=== PATIENT | female | born 1985 | race African-American/Black ===

== ENCOUNTER 2017-10-13 00:16 | Emergency (ER) | payer MEDICAID, MEDICARE, SELFPAY ==
[2017-10-13] MEDS ORDERED: Azithromycin 250 MG TAB ONE (00:37)
[2017-10-13] MEDS ORDERED: cefTRIAXone\\ROCEPHIN 250 MG VIAL ONE (00:37)
[2017-10-13] MEDS ORDERED: Lidocaine 1% PF 5 ML VIAL ONE (00:37)
== END 2017-10-13 01:00 | disposition home or self-care (01) ==
LOC: SCSER 00:16
DX: Z20.2 Contact with and (suspected) exposure to infections with a predominantly sexual mode of transmission (principal); J45.909 Unspecified asthma, uncomplicated; F17.210 Nicotine dependence, cigarettes, uncomplicated; F31.9 Bipolar disorder, unspecified; F41.9 Anxiety disorder, unspecified
CPT/HCPCS: 87491; 87591; 96372; J0696; J2001

== ENCOUNTER 2018-05-17 17:47 | Emergency (ER) | payer MEDICARE, SELFPAY ==
[2018-05-17 18:16] LABS: Bilirubin Negative (Negative); Blood, Urine Trace (Negative); Clarity Slightly Cloudy (Clear); Glucose, Urine (Dipstick) Negative (Negative); Leukocyte Negative (Negative); Nitrite Negative (Negative); Protein, Urine (Dipstick) 30 mg/dL (Neg-Trace); Urobilinogen 0.2 mg/dL (0.2-1.0)
[2018-05-17 18:17] LABS: Pregnancy Test - Urine (BHCG) POSITIVE (Negative); Pregu Control Background? CLEAR/WHITE (CLR/WHITE); Pregu Control Bar Appear? YES (CONTROL BAR); Specific Gravity 1.028 (1.002-1.036); Specific Gravity, Urine 1.028 (1.002-1.036)
[2018-05-17 18:26] LABS: RBC/HPF 0-3 HPF (0-3)
[2018-05-17 18:27] LABS: Bacteria/HPF None Seen HPF (None Seen); Hyaline Casts/LPF 0-3 HYALINE CAST LPF (0-3 Hyaline)
[2018-05-17] MEDS ORDERED: Acetaminophen 500 MG TAB ONE (19:44)
--- NOTE | 2018-05-17 22:31 | ULT ---
TRANSVAGINAL PELVIC ULTRASOUND WITH DOPPLER (GRAYSCALE, COLOR FLOW, AND SPECTRAL DOPPLER IMAGING): History: Abdominal cramping. FINDINGS: A single live intrauterine gestation is seen with measurements corresponding to an estimated gestatio nal age of 9 weeks 2 days with REYNA of 12-18-18. The crown rump length measures 2.5 cm. heart rat e measures 169 beats/minute. The uterus is retroverted. Both ovaries are normal and demonstrate flow. No free fluid is seen in the cul-de-sac. No adnexal masses are identified. IMPRESSION: Single live IUP of 9 weeks 2 days estimated gestational age with REYNA of 12-18-18. POS: [facility]
[2018-05-19 20:16] LABS: Chlamydia by PCR Not Detected (NotDetected); GC by PCR Not Detected (NotDetected)
== END 2018-05-17 21:30 | disposition home or self-care (01) ==
LOC: SCSER 17:47
DX: O99.89 Other specified diseases and conditions complicating pregnancy, childbirth and the puerperium (principal); R10.2 Pelvic and perineal pain; O99.511 Diseases of the respiratory system complicating pregnancy, first trimester; J45.909 Unspecified asthma, uncomplicated; O99.341 Other mental disorders complicating pregnancy, first trimester; F41.9 Anxiety disorder, unspecified; F31.9 Bipolar disorder, unspecified; O99.331 Smoking (tobacco) complicating pregnancy, first trimester; Z3A.09 9 weeks gestation of pregnancy
CPT/HCPCS: 36415; 76856; 81003; 81015; 81025; 84702; 87480; 87491; 87510; 87591; 87660

== ENCOUNTER 2018-06-07 15:59 | Emergency (ER) | payer MEDICARE ==
[2018-06-07 16:39] LABS: Bilirubin Small (Negative); Blood, Urine Negative (Negative); Clarity CLEAR (Clear); Glucose, Urine (Dipstick) Negative (Negative); Leukocyte Negative (Negative); Nitrite Negative (Negative); Protein, Urine (Dipstick) Trace mg/dL (Neg-Trace); Specific Gravity, Urine 1.034 (1.002-1.036)
[2018-06-08 22:42] LABS: Chlamydia by PCR Not Detected (NotDetected); GC by PCR Not Detected (NotDetected)
== END 2018-06-07 18:45 | disposition home or self-care (01) ==
LOC: ERS 15:59
DX: O99.89 Other specified diseases and conditions complicating pregnancy, childbirth and the puerperium (principal); R10.2 Pelvic and perineal pain; O99.011 Anemia complicating pregnancy, first trimester; O99.511 Diseases of the respiratory system complicating pregnancy, first trimester; J45.909 Unspecified asthma, uncomplicated; O99.341 Other mental disorders complicating pregnancy, first trimester; F31.9 Bipolar disorder, unspecified; F41.9 Anxiety disorder, unspecified; O99.331 Smoking (tobacco) complicating pregnancy, first trimester; F17.210 Nicotine dependence, cigarettes, uncomplicated; Z3A.12 12 weeks gestation of pregnancy
CPT/HCPCS: 81003; 87480; 87491; 87510; 87591; 87660; 99283

== ENCOUNTER 2018-06-19 07:35 | Outpatient (CLI) | payer MEDICAID | END 2018-06-19 07:36 | disposition home or self-care (01) | LOC: BICULT 07:35 | PROVIDERS: ATTEND Nurse Practitioner | DX: O09.92 Supervision of high risk pregnancy, unspecified, second trimester (principal); N88.3 Incompetence of cervix uteri | CPT/HCPCS: 76805 ==

== ENCOUNTER 2018-08-12 16:25 | Day surgery (SDC) | payer MEDICARE, MEDICAID ==
[2018-08-12 17:13] VITALS: BMI 28.2
[2018-08-12 17:16] VITALS: BP 110/57; TEMP 98.9
[2018-08-12 17:17] LABS: Amnisure Internal Control QC ACCEPTABLE (ACCEPTABLE); Amnisure Test No Membranes Rupture (No Rupture)
[2018-08-12 18:33] LABS: Bilirubin Negative (Negative); Blood, Urine Negative (Negative); Clarity CLEAR (Clear); Glucose, Urine (Dipstick) Negative (Negative); Leukocyte Negative (Negative); Nitrite Negative (Negative); Protein, Urine (Dipstick) Negative (Neg-Trace); Specific Gravity, Urine 1.026 (1.002-1.036)
[2018-08-12 18:39] LABS: Bacteria/HPF None Seen HPF (None Seen); Hyaline Casts/LPF 0-3 HYALINE CAST LPF (0-3 Hyaline); Pathc Cast-AUWi Flag 0.87 (0-2.49); RBC/HPF 0-3 HPF (0-3); Squamous Epithelial 0-3 HPF (0-3); WBC/HPF 0-3 HPF (0-3)
--- NOTE | 2018-08-12 21:50 | PRG ---
DATE OF SERVICE: 08/12/2018 PRIMARY COMMUNITY OUTREACH COORDINATOR: Mattie Jasso MD CHIEF COMPLAINT: Leakage of fluid. HISTORY OF PRESENT ILLNESS: The patient is a 33-year-old female with an intrauterine at 22 weeks and a day, presenting for 3-day history of leakage of fluid. The patient reports that t he liquid is more watery than mucousy. She denies any uterine contractions. She does report she has lower back pain on the right side, but that has been present for several weeks and is aggravated wit h movement and activity. The patient does have a history of cervical cerclage with this at 18 weeks placed prophylactically for history of incompetent cervix. The patient denies fever, heada alverto, chest pain. She reports shortness of breath with exertional activity. She denies nausea, vomit ing. Denies any new rashes. Denies hip problems or knee problems. Denies vaginal bleeding. Report s some urinary urgency. PAST MEDICAL HISTORY: Asthma, bipolar disorder, generalized anxiety, depression. PAST SURGICAL HISTORY: She has had jaw surgery, tonsillectomy, foot cyst removal, previous cervical cerclage and a prior . SOCIAL HISTORY: Reports 5-6 cigarettes a day and marijuana use in the past. Denies any alcohol use. ALLERGIES: GADOLINIUM. MEDICATIONS: Seroquel 200 mg, vitamins. OB LABS: Unavailable. REVIEW OF SYSTEMS: Per HPI. Patient denies any recent intercourse. PHYSICAL EXAMINATION: VITAL SIGNS: Blood pressure is 110/57, heart rate is 70, respiratory rate of 18, satting 99% on room air, temperature 98.9. GENERAL: She appears to be in no acute distress. She is alert and oriented, cooperative and pleasan t to interact with. HEENT: Normocephalic, atraumatic. LUNGS: Clear to auscultation bilaterally. HEART: Regular rate and rhythm. ABDOMEN: Soft, gravid and nontender. She has some tenderness to palpation along the right SI joint and out toward the iliac wing along the gluteus medius muscle. Her perineum appears to be dry. On s peculum exam, there is no pulling visible though she does have discharge present. Cervix is very pos terior and difficult to clearly place into view without undue discomfort. Urinalysis shows a negativ e protein, shows ketones greater than 80, negative for blood, negative for nitrites, negative for mckenna kocyte esterase. No white blood cells, no bacteria. AmniSure test was negative for rupture of membr anes and her NET TECHNICAL ARCHITECT-3 test is positive for Gardnerella. Bedside ultrasound demonstrates normal appearing amniotic fluid with a cervical length of 3.4 cm. PELVIC: On digital exam, the cervix was thick and long. No defects palpable and a cerclage clearly about 2+ cm from the most distal portion of the cervix. ASSESSMENT AND PLAN: The patient is a 33-year-old female with an intrauterine at 22 weeks, presenting with leakage of fluid. There is no evidence of rupture of membranes, labor . Cervix, the cerclage is intact. The patient has been diagnosed with bacterial vaginosis and will be prescribed a prescription of metronidazole 500 mg to be taken twice a day for the next 7 days. Uriel morris has been discharged to home with precautions and has been asked to keep her followup appointment wi mj Jasso as scheduled.
== END 2018-08-12 19:29 | disposition home or self-care (01) ==
LOC: L&D/OP 16:25
PROVIDERS: ATTEND Student in an Organized Health Care Education/Training Program
DX: O99.89 Other specified diseases and conditions complicating pregnancy, childbirth and the puerperium (principal); N89.8 Other specified noninflammatory disorders of vagina; O99.332 Smoking (tobacco) complicating pregnancy, second trimester; F17.210 Nicotine dependence, cigarettes, uncomplicated; O34.32 Maternal care for cervical incompetence, second trimester; O23.592 Infection of other part of genital tract in pregnancy, second trimester; B96.89 Other specified bacterial agents as the cause of diseases classified elsewhere; O99.512 Diseases of the respiratory system complicating pregnancy, second trimester; J45.909 Unspecified asthma, uncomplicated; O99.342 Other mental disorders complicating pregnancy, second trimester; F31.9 Bipolar disorder, unspecified; F41.1 Generalized anxiety disorder; Z3A.22 22 weeks gestation of pregnancy; Z79.899 Other long term (current) drug therapy; Z91.041 Radiographic dye allergy status
CPT/HCPCS: 76815; 81001; 84112; 87480; 87510; 87660; 99284

== ENCOUNTER 2018-10-02 17:25 | Day surgery (SDC) | payer MEDICARE, MEDICAID ==
[2018-10-02 19:35] VITALS: BP 99/54; TEMP 98.3; BMI 28.8
[2018-10-02] MEDS ORDERED: Lactated Ringer's 1,000 ML IV SCH ×2 (19:45)
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
[2018-10-02] MEDS ORDERED: Acetaminophen 500 MG TAB PO PRN (19:59)
[2018-10-02] MEDS ORDERED: Acetaminophen 500 MG TAB PO SCH (20:15)
[2018-10-02] MEDS ORDERED: Cyclobenzaprine 10 MG TAB PO SCH (22:00)
--- NOTE | 2018-10-02 22:23 | PDOC.EVN ---
Event Note - Event Note Event Note: 10/02/2018 at 9:30 PM Cervical length screen 3.29 cm. Patient does not appear to be in labor at this time. labor precautions provided. Mechanism of injury was such that patient did not sustain serious injuries. No bruising or swelling evident on body. Patient only complaining of left arm pain. Due to mechanism of injury as described in HPI, patient does not necessitate 24 hour monitoring. Advised patient to come back if she started to have vaginal bleeding, painful and regular contractions, or LoF. Patient understood. Will send patient home with muscle relaxer and tylenol #3 (x10 pills). 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 Sussy Coronado, PGY-2 <Sussy Coronado - Last Filed: 10/02/18 22:17> Attending Addendum - Attending Addendum Date/Time: 10/04/18 [id number] I personally evaluated the patient and discussed the management with Dr. Coronado I agree with the History, Examination, Assessment and Plan documented above with any addition or exceptions noted below. <Luis Blanco - Last Filed: 10/04/18 17:59>
--- NOTE | 2018-10-02 22:24 | ULT ---
LIMITED PELVIC ULTRASOUND: 10/02/18 HISTORY: 33-year-old female who is to evaluate for cervical length. Transabdominal and translabial ultrasound examination is performed. Cervical length approximates betw een 2.1 and 3.3 cm measuring approximately 2.1 cm with contractions. The fetus is in cephalic present ation. Small echogenicities are noted consistent with known cerclage. IMPRESSION: Cervical length varying between 2.1 and 3.3 cm, 2.1 cm with contraction. POS: [facility]
== END 2018-10-02 22:12 | disposition home or self-care (01) ==
LOC: SCSER 17:25 → L&D/OP 18:37
PROVIDERS: ATTEND Obstetrics & Gynecology
DX: O99.89 Other specified diseases and conditions complicating pregnancy, childbirth and the puerperium (principal); M25.512 Pain in left shoulder; R10.2 Pelvic and perineal pain; O34.33 Maternal care for cervical incompetence, third trimester; O09.213 Supervision of pregnancy with history of pre-term labor, third trimester; O99.343 Other mental disorders complicating pregnancy, third trimester; F31.9 Bipolar disorder, unspecified; F41.9 Anxiety disorder, unspecified; Z3A.29 29 weeks gestation of pregnancy; Z79.899 Other long term (current) drug therapy; Z91.041 Radiographic dye allergy status; Z91.048 Other nonmedicinal substance allergy status; V03.90XA Pedestrian on foot injured in collision with car, pick-up truck or van, unspecified whether traffic or nontraffic accident, initial encounter
CPT/HCPCS: 59025; 76857; 96360; 96361; 99285

== ENCOUNTER 2018-10-17 22:55 | Inpatient (IN) | payer MEDICARE, MEDICAID ==
[2018-10-17 23:36] VITALS: BP 102/59; TEMP 98.6; BMI 29.0
[2018-10-17] MEDS ORDERED: Meperidine HCl/PF 25 MG/ML VIAL IM/IV PRN (23:41)
[2018-10-17] MEDS ORDERED: Ondansetron PF 4 MG/2 ML Vial IVP PRN (23:41)
[2018-10-17] MEDS: Lactated Ringer's 1,000 ML IV SCH (23:48)
[2018-10-17] MEDS ORDERED: Betamet Acet/Betamet Na Ph 30 MG/5 ML VIAL ONE (23:52)
[2018-10-17] MEDS ORDERED: Magnesium Sulfate 20 gm/500 ml 20 GM/500 ML BAG ONE (23:53)
[2018-10-17] MEDS: Magnesium Sulfate 20 gm/500 ml 20 GM/500 ML BAG IVPB SCH (23:58)
[2018-10-17] MEDS ORDERED: Magnesium Sulfate 20 GM/WATER 500 ML BAG IVPB SCH (23:59)
[2018-10-18] MEDS ORDERED: Penicillin G Potassium 5 MILL.UNITS VIAL ONE (00:05)
[2018-10-18 00:16] LABS: Hemoglobin 11.1 g/dL (12.0-16.0); Mean Corpuscular HGB CONC 36.1 g/dL (32.0-36.0); Mean Corpuscular Hemoglobin 35.3 pg (27.0-31.0); Mean Corpuscular Volume 97.6 fL (78.0-98.0); Platelet Count 312 thou/uL (130-400); RBC Distribution Width 11.4 % (11.5-14.5); Red Blood Cell (RBC) Count 3.14 mill/uL (4.20-5.40); White Blood Cell (WBC) Count 10.1 thou/uL (4.8-10.8)
--- NOTE | 2018-10-18 00:17 | PDOC.LDHP ---
Labor and Delivery H&P Chief complaint: contractions HPI: 33 yo WF presents c/o UCs since earlier this PM. Denies SROM or bleeding. Current gestational age (weeks): 31 Due date: 12/15/18 Dating criteria: first trimester ultrasound Grav: 8 Para: 2 OB History Details: PNC with Dr. Jasso. Cerclage placed at 14 weeks. On IM progesterone, has not taken in 3 weeks. H/o of prev. C/S at 35 weeks for FTP, dispo for . Current complications: other (as above) Abnormal US findings: No Past Medical History: asthma, bipolar Current medications: pre- vitamins, other (Prozac) Previous surgical history: low tranverse CS, dilation and curettage Allergies/Adverse Reactions: Allergies Allergy/AdvReac Type Severity Reaction Status Date / Time grass pollen-perennial rye, Allergy Verified 10/02/18 19:23 standar [grass poll-perennial rye,std] Gadolinium-Containing AdvReac Intermediate Anaphylaxis Verified 10/02/18 19:23 Contrast Medi Social history: tobacco use, drug use (MJ last used 2 weeks ago) - Physical Exam Vital signs reviewed and normal: yes General: breathing through contractions Heart: RRR Lungs: CTAB Abdomen: gravid FHT: category 1 [place] contractions every: UCs q 3 mins. - Vaginal Exam cm dilated: 0 Effacement: 75% - OB Labs Blood type: unknown RH: unknown Antibody Screen: unknown GBS: unknown - Assessment L&D Assessment: labor (31 weeks with cerclage in place) - Plan Plan: admit to L&D, GBS antibiotic prophylaxis, magnesium for neuroprotection, informed consent obtained (D/w Dr. Jasso, Hospitalists to manage), other ( Steroids for FLM USG for cervical length, EFW)
[2018-10-18 00:35] LABS: Bilirubin Negative (Negative); Blood, Urine Trace (Negative); Clarity CLEAR (Clear); Glucose, Urine (Dipstick) Negative (Negative); Leukocyte Negative (Negative); Nitrite Negative (Negative); Protein, Urine (Dipstick) Negative (Neg-Trace); Specific Gravity, Urine 1.014 (1.002-1.036); Urobilinogen 0.2 mg/dL (0.2-1.0); pH, Urine 6.5 (5.0-9.0)
[2018-10-18 00:38] LABS: Bacteria/HPF None Seen HPF (None Seen); Hyaline Casts/LPF 0-3 HYALINE CAST LPF (0-3 Hyaline); Pathc Cast-AUWi Flag 0.58 (0-2.49); Squamous Epithelial 0-3 HPF (0-3); WBC/HPF 0-3 HPF (0-3)
[2018-10-18] MEDS ORDERED: Indomethacin 50 MG SUPP PR SCH (00:45)
[2018-10-18] MEDS: Butorphanol Tartrate 1 MG/ML VIAL SLOW IVP PRN ×3 (00:48→05:44)
[2018-10-18 00:59] LABS: Amphetamine Not Detected (NotDetected); Barbiturates Screen Not Detected (NotDetected); Benzodiazepine Screen Not Detected (NotDetected); Cocaine Metabolite Screen Not Detected (NotDetected); Medtox Control Line Valid? VALID (VALID); Medtox Reader # READER 1; Methadone Not Detected (NotDetected); Methamphetamine Not Detected (NotDetected); Opiate Screen Not Detected (NotDetected); Oxycodone Screen Not Detected (NotDetected); Phencyclidine (PCP) Not Detected (NotDetected); THC/Cannabinoid Screen Detected (NotDetected); Tricyclic Screen Not Detected (NotDetected)
--- NOTE | 2018-10-18 02:42 | PDOC.EVN ---
Event Note - Event Note Event Note: Mg load given now at 2 gms/hr. Indocin 50 mg NM also given. 1st dose of steroids given. USG; vtx, cervix= 1.6 cm long, EFW= 3 lbs, 12 oz. UDS returns with MJ that she admitted to. Plan; Cont. MgSo4 and attempt 2nd dose of steroids. Cont. Pen G for GBS ppx.
[2018-10-18] MEDS: Pen G 2.5 MILL.UNITS/50 ML BAG IVPB SCH ×6 (04:08→20:39)
[2018-10-18] MEDS: Magnesium Sulfate 20 gm/500 ml 20 GM/500 ML BAG IVPB SCH ×2 (07:03→16:13)
[2018-10-18] MEDS: Lactated Ringer's 1,000 ML IV SCH ×2 (07:33→18:08)
--- NOTE | 2018-10-18 08:48 | PDOC.EVN ---
Event Note - Event Note Event Note: [facility] OBG[facility] Patient seen at bedside. Handwritten progress note in chart Plan reviewed in details reviewed, written on white marker board in room. Assessment and EGA: 31 weeks 5 days, prior CS, cerclage in use, prior CS cleared for TOLAC. Plan: ABX Mag for neuroprotection Celestione #2 at midnight 10/19 cerclage out if labors NICU aware Sono done: vertex, EFW 1663 grams; cervical length 1.5cm by Nicki report to me
[2018-10-18] MEDS: Promethazine HCl 25 MG/ML VIAL IM PRN ×2 (09:29→19:03)
--- NOTE | 2018-10-18 15:56 | ULT ---
PRELIMINARY REPORT/[facility]/EMERGENTY AFTER-HOURS PROCEDURE US After First Trimester, Transabdominal EXAM DATE/TIME: 10/18/2018 12:58 AM CLINICAL HISTORY: 33 years old, female; Pain; labor - eval cervix, position, EFW; gestational age: 31 wks; Prior surgery; date: 6+ months; TECHNIQUE: Real-time transabdominal obstetrical ultrasound of the maternal pelvis and a second or third trimeste r with image documentation. COMPARISON: No relevant prior studies available. FINDINGS: BPD: 8.16 cm. HC: 30.12 cm. AC: 26.63 cm. FL: 5.82 cm. Gestational age: 31 weeks, 6 days. Estimated weight: 1692 +/- 250 g. Placental position: Posterior. No placenta previa. JADE: 10.5 cm which is within the normal range. presentation: Vertex. EDC: 12/14/2018. heart rate: 122 bpm. Cervical funneling is present. Cervical length 1.6-1.7 cm. History of cerclage bladder, 4 chamber heart, stomach, and kidneys are identified. movement is identified. IMPRESSION: 1. Single live intrauterine with gestational age of 31 weeks, 6 days. 2. heart rate equals 122 bpm. 3. Normal amniotic fluid volume. 4. No placenta previa. 5. Cervical funneling is present. Cervical length 1.6-1.7 cm. History of cerclage Thank you for allowing us to participate in the care of your patient. Dictated and Authenticated by: Henry Mazariegos MD 10/18/2018 1:59 AM Central Time ([place] & [place]) FINAL REPORT ULTRASOUND OB LIMITED: HISTORY: labor. COMPARISON: Ultrasound pelvic limited 10/02/2018. FINDINGS: Real-time, flores scale, color Doppler, and spectral analysis of the gravid uterus was performed. Surg ical evaluation done with a transvaginal approach. Findings and impression are concordant with the p reliminary report. Cervical length is decreased from the comparison examination. POS: [facility]
--- NOTE | 2018-10-18 17:14 | PDOC.EVN ---
Event Note - Event Note Event Note: Patient stable. Dr Jasso has called and been briefed on status. Dr Jasso managing as well. I ordered regular diet.
[2018-10-18] MEDS: Acetaminophen 500 MG TAB PO PRN (19:03)
[2018-10-18] MEDS: Betamet Acet/Betamet Na Ph 30 MG/5 ML VIAL IM SCH ×2 (23:51)
[2018-10-19] MEDS ORDERED: [UNRECOGNIZED DRUG - OTHER] IM SCH (09:00)
--- NOTE | 2018-10-19 09:00 | PDOC.LDPN ---
Labor & Delivery Progress Note - Subjective Subjective: painful contractions (about 1/hr, no VB LOF. Good FM. ) - Objective Vital signs reviewed and normal: yes General: NAD, resting Uterine fundus: non tender FHT: category 1 [place] contractions every: about 1-2/hr - Assessment (1) contractions Code(s): O47.9 - FALSE LABOR, UNSPECIFIED Current Visit: Yes Status: Acute (2) Cervical cerclage suture present in third trimester Code(s): O34.33 - MATERNAL CARE FOR CERVICAL INCOMPETENCE, THIRD TRIMESTER Current Visit: No Status: Acute -: 33yo at 31w6d by LMP with hx of cervical insufficiency, current cerclage in place presenting with painful contractions, found to be closed on exam initially. 1. PTCx- s/p Mag for tocolysis which decreased the ctx significantly however the contractions she is having are painful. Will start procardia q4h for painful contractions for next 24hr. Cont APU care, ok for minimal ambulation, pt is not to leave the unit. HLIV, cont po hydration. Ok to shower. Pt is high stress with her job and her emotional state, advised pt needing to stay in calm environment with minimal emotional and physical stress. Pt understands. 2. Cerclage in place- no e/o dilation at this time. Plan SVE later today to ensure no changes. 3. Prior CS- desires repeat with cerclage removal. 4. Bipolar- restart prozac, mood good 5. Noncompliance- pt has not been to my clinic in last 6w and has not received 17P since then , will require SWK consult PP 6. THC use- continues use despite being advised on ill effects during , SWK consult 7. H/o PTD- 17P today 8. FHT Cat 1, cont q shift NST. 9. 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 Vertex, EFW 1691gm = 31w6d, nl JADE on sono 10. GBS unknown- cx pending, s/p PCN 11. IUP- has not had GDM testing, will defer since rec'd steroids, restart PNV. 12. Cont APU care. If stable will plan transfer to floor tomorrow and poss DC on Friday.
[2018-10-19] MEDS: FLUoxetine HCl 20 MG CAP PO SCH (09:59)
[2018-10-19] MEDS: Prenatal Vitamin 1 TAB PO SCH (10:00)
[2018-10-19] MEDS: NIFEdipine 10 MG CAP PO SCH ×4 (10:02→22:00)
[2018-10-19] MEDS: Acetaminophen 500 MG TAB PO PRN ×2 (11:58→20:43)
[2018-10-19] MEDS ORDERED: Famotidine 20 MG TAB PO PRN (20:58)
[2018-10-19] MEDS ORDERED: Zolpidem Tartrate 5 MG TAB PO PRN (20:59)
[2018-10-19] MEDS ORDERED: Lactated Ringer's 1,000 ML IV SCH ×2 (23:00→23:59)
[2018-10-20] MEDS: Butorphanol Tartrate 1 MG/ML VIAL SLOW IVP PRN (00:50)
[2018-10-20] MEDS: Acetaminophen 500 MG TAB PO PRN (06:12)
--- NOTE | 2018-10-20 08:01 | PDOC.LDPN ---
Labor & Delivery Progress Note - Objective Vital signs reviewed and normal: yes General: NAD Uterine fundus: non tender - Assessment (1) contractions Code(s): O47.9 - FALSE LABOR, UNSPECIFIED Current Visit: Yes Status: Acute (2) Cervical cerclage suture present in third trimester Code(s): O34.33 - MATERNAL CARE FOR CERVICAL INCOMPETENCE, THIRD TRIMESTER Current Visit: No Status: Acute
[2018-10-20] MEDS ORDERED: Cyclobenzaprine 10 MG TAB PO PRN (08:17)
[2018-10-20] MEDS ORDERED: NIFEdipine 10 MG CAP PO PRN (08:17)
[2018-10-20] MEDS: Docusate 100 MG CAP PO SCH ×2 (09:48→09:50)
[2018-10-20] MEDS: FLUoxetine HCl 20 MG CAP PO SCH (09:48)
[2018-10-20] MEDS: Prenatal Vitamin 1 TAB PO SCH (09:57)
== END 2018-10-20 17:00 | disposition home health service (06) | DRG 833 ==
LOC: L&D/OP 22:55 → L&D 10-18 00:33
PROVIDERS: ADMIT Student in an Organized Health Care Education/Training Program; ATTEND Student in an Organized Health Care Education/Training Program
DX: O47.03 False labor before 37 completed weeks of gestation, third trimester (principal); Z3A.31 31 weeks gestation of pregnancy
CPT/HCPCS: 36415; 51702; 76815; 80306; 81001; 85027; 86850; 86900; 86901; 87081; 87480; 87510; 87660; 99285; J0595; J0702; J1726; J2540; J2550; J3475

== ENCOUNTER 2018-10-26 11:45 | Inpatient (IN) | payer MEDICAID ==
[2018-10-26 12:12] VITALS: BMI 29.1
--- NOTE | 2018-10-26 13:11 | PDOC.LDHP ---
Labor and Delivery H&P HPI: 33yo at 32w2d by LMP that presented to office c/o painful contractions q 5min, increase in yellow-brown discharge and vaginal ripping pain. Pt has hx of cervical insufficiency and currently has cerclage in place. Pt is prior CS x 1 and desires repeat. In office pt found to have cervix dilated to 2cm and cerclage was on tension, 80% effaced. Current gestational age (weeks): 32 Due date: 12/19/17 Dating criteria: last menstrual period Grav: 10 Para: 2 OB History Details: Recurrent loss, multiple SAB at < 10w, SAB x 1 at 13w s/p D&C SPTB at 28w, s/p rescue cerclage at 16w for short cervix SPTB at 37w s/p PCS for FTP Current complications: other (h/o cervical insufficiency and PTL, s/p prophylactic cerclage at 14w this , on 17P weekly.) Abnormal US findings: No Past Medical History: hx biopolar and anxiety/depression Current medications: pre- vitamins Previous surgical history: dilation and curettage, other (cerclage x 2, T&A, jaw surgery, cyst removed from right foot) Allergies/Adverse Reactions: Allergies Allergy/AdvReac Type Severity Reaction Status Date / Time grass pollen-perennial rye, Allergy Verified 10/02/18 19:23 standar [grass poll-perennial rye,std] Gadolinium-Containing AdvReac Intermediate Anaphylaxis Verified 10/02/18 19:23 Contrast Medi Social history: tobacco use, drug use (THC) - Physical Exam Vital signs reviewed and normal: yes General: NAD Heart: RRR Lungs: CTAB Abdomen: gravid Extremeties: no edema FHT: category 1 [place] contractions every: 5-7min - Vaginal Exam cm dilated: 2 Effacement: 75% Station: -2 - OB Labs RH: positive Antibody Screen: negative HIV: negative RPR: negative HEPSAg: negative GBS: negative Urine drug screen: positive Rubella: immune - Assessment L&D Assessment: labor - Plan Plan: admit to L&D, other (plan for cerclage removal as it is on a lot of tension and at risk of avulsing through cervix. plan for treatment of labor with hydration and sedation, s/p BMZ x 2 1 wk ago not for retocolysis. FFN positive from office today. 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 If labors will be for RCS, have also applied for risk reducing salpingectomy as pt has FH of cancer and desires sterilization. UDS for THC use. NPO. Ok for pain meds prn.)
[2018-10-26] MEDS ORDERED: CEFAZOLIN 2 GM/50 ML BAG IVPB SCH (13:26)
[2018-10-26] MEDS ORDERED: Lactated Ringer's 1,000 ML IV SCH ×2 (13:26)
[2018-10-26] MEDS ORDERED: Promethazine HCl 25 MG/ML VIAL IM PRN (13:26)
[2018-10-26] MEDS ORDERED: Ondansetron PF 4 MG/2 ML Vial IVP PRN (13:26)
[2018-10-26] MEDS ORDERED: Bicitra 30 ML UDCUP PO SCH (13:26)
[2018-10-26] MEDS ORDERED: Butorphanol Tartrate 1 MG/ML VIAL SLOW IVP PRN (13:26)
[2018-10-26] MEDS ORDERED: Butorphanol Tartrate 1 MG/ML VIAL ONE (13:35)
[2018-10-26 13:38] LABS: Hemoglobin 11.8 g/dL (12.0-16.0); Mean Corpuscular HGB CONC 36.3 g/dL (32.0-36.0); Mean Corpuscular Hemoglobin 35.6 pg (27.0-31.0); Mean Corpuscular Volume 98.1 fL (78.0-98.0); Mean Platelet Volume 7.2 fL (7.4-10.4); Platelet Count 330 thou/uL (130-400); RBC Distribution Width 11.4 % (11.5-14.5); Red Blood Cell (RBC) Count 3.33 mill/uL (4.20-5.40); White Blood Cell (WBC) Count 10.4 thou/uL (4.8-10.8)
[2018-10-26 14:20] LABS: Syphilis Antibody Nonreactive (Nonreactive); Syphilis Antibody Index 0.03 S/CO (<1.00 Non-Reactive)
[2018-10-26 14:21] LABS: Hep B Surf Ag Non-Reactive S/CO (NonReactive)
[2018-10-26] MEDS ORDERED: Dextrose 5%-Lactated Ringers 1,000 ML IV SCH (14:30)
[2018-10-26] MEDS ORDERED: [UNRECOGNIZED DRUG - OTHER] IM SCH (15:30)
[2018-10-26 19:15] LABS: Amphetamine Not Detected (NotDetected); Barbiturates Screen Not Detected (NotDetected); Benzodiazepine Screen Not Detected (NotDetected); Cocaine Metabolite Screen Not Detected (NotDetected); Medtox Control Line Valid? VALID (VALID); Medtox Reader # READER 1; Methadone Not Detected (NotDetected); Methamphetamine Not Detected (NotDetected); Opiate Screen Not Detected (NotDetected); Oxycodone Screen Not Detected (NotDetected); Phencyclidine (PCP) Not Detected (NotDetected); THC/Cannabinoid Screen Detected (NotDetected); Tricyclic Screen Not Detected (NotDetected)
[2018-10-26] MEDS ORDERED: Acetaminophen 500 MG TAB PO PRN (21:10)
[2018-10-26] MEDS ORDERED: Zolpidem Tartrate 5 MG TAB PO SCH ×2 (21:15→23:45)
[2018-10-26] MEDS ORDERED: HYDROcodone/Acetaminophen 5/325 mg Tablet PO PRN (23:42)
== END 2018-10-27 08:17 | disposition home health service (06) | DRG 818 ==
LOC: L&D/OP 11:45 → L&D 12:23
PROVIDERS: ADMIT Student in an Organized Health Care Education/Training Program; ATTEND Student in an Organized Health Care Education/Training Program
PROC: 0UCC7ZZ Extirpation of Matter from Cervix, Via Natural or Artificial Opening (ICD-10-PCS; principal; 2018-10-26)
DX: O34.33 Maternal care for cervical incompetence, third trimester (principal); O99.323 Drug use complicating pregnancy, third trimester; O09.293 Supervision of pregnancy with other poor reproductive or obstetric history, third trimester; O26.23 Pregnancy care for patient with recurrent pregnancy loss, third trimester; Z3A.32 32 weeks gestation of pregnancy; O34.211 Maternal care for low transverse scar from previous cesarean delivery; N85.8 Other specified noninflammatory disorders of uterus; O99.333 Smoking (tobacco) complicating pregnancy, third trimester; F12.90 Cannabis use, unspecified, uncomplicated
CPT/HCPCS: 51701; 59899; 80306; 82731; 85027; 86780; 86850; 86900; 86901; 87340; 87480; 87510; 87660; J0595; J1726

== ENCOUNTER 2018-10-30 16:34 | Observation (INO) | payer MEDICAID ==
[2018-10-30 18:24] VITALS: BMI 26.5
[2018-10-30] MEDS ORDERED: Promethazine HCl 25 MG/ML VIAL IM PRN (18:28)
[2018-10-30] MEDS ORDERED: Acetaminophen 500 MG TAB PO PRN (18:28)
[2018-10-30] MEDS ORDERED: Ondansetron PF 4 MG/2 ML Vial IVP PRN (18:28)
[2018-10-30] MEDS ORDERED: Lactated Ringer's 1,000 ML IV SCH ×2 (18:28→21:45)
[2018-10-30 18:40] LABS: Hemoglobin 11.2 g/dL (12.0-16.0); Mean Corpuscular HGB CONC 36.3 g/dL (32.0-36.0); Mean Corpuscular Hemoglobin 35.7 pg (27.0-31.0); Mean Corpuscular Volume 98.4 fL (78.0-98.0); Mean Platelet Volume 6.6 fL (7.4-10.4); Platelet Count 302 thou/uL (130-400); RBC Distribution Width 11.2 % (11.5-14.5); Red Blood Cell (RBC) Count 3.12 mill/uL (4.20-5.40); White Blood Cell (WBC) Count 10.7 thou/uL (4.8-10.8)
[2018-10-30 19:01] LABS: ALT (SGPT) 16 U/L (8-55); AST (SGOT) 14 U/L (5-34); Albumin 3.5 g/dL (3.5-5.0); Alkaline Phosphatase 94 U/L (40-150); Anion Gap 12 mmol/L (10-20); BUN (Urea Nitrogen) 8 mg/dL (7.0-18.7); Bilirubin, Total 0.4 mg/dL (0.2-1.2); Calc. Creatinine Clearance 141 mL/min (70-130); Carbon Dioxide 20 mmol/L (22-29); Chloride 107 mmol/L (98-107); Estimated GFR-MDRD Greater than 90; Globulin 2.9 g/dL (2.4-3.5); Glucose 76 mg/dL (70-105); Protein, Total 6.4 g/dL (6.0-8.3); Sodium 136 mmol/L (136-145)
[2018-10-30] MEDS ORDERED: Zolpidem Tartrate 5 MG TAB PO PRN (21:15)
[2018-10-30] MEDS ORDERED: Potassium Chloride 20 MEQ in Lactated Ringer's 1,000 ML IV SCH (21:30)
[2018-10-30 21:32] LABS: Bilirubin Negative (Negative); Blood, Urine Negative (Negative); Clarity CLEAR (Clear); Glucose, Urine (Dipstick) Negative (Negative); Leukocyte Negative (Negative); Nitrite Negative (Negative); Protein, Urine (Dipstick) Negative (Neg-Trace); Specific Gravity, Urine 1.013 (1.002-1.036); pH, Urine 6.5 (5.0-9.0)
[2018-10-30 21:35] LABS: Bacteria/HPF None Seen HPF (None Seen); Hyaline Casts/LPF 0-3 HYALINE CAST LPF (0-3 Hyaline); Pathc Cast-AUWi Flag 0.14 (0-2.49); Squamous Epithelial 0-3 HPF (0-3); WBC/HPF 0-3 HPF (0-3)
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
[2018-10-30 21:41] LABS: Cocaine Metabolite Screen Not Detected (NotDetected); Medtox Reader # READER 1; Methamphetamine Not Detected (NotDetected); Opiate Screen Not Detected (NotDetected); Phencyclidine (PCP) Not Detected (NotDetected); THC/Cannabinoid Screen Detected (NotDetected)
[2018-10-30 21:42] LABS: Amphetamine Not Detected (NotDetected); Barbiturates Screen Not Detected (NotDetected); Benzodiazepine Screen Not Detected (NotDetected); Medtox Control Line Valid? VALID (VALID); Methadone Not Detected (NotDetected); Oxycodone Screen Not Detected (NotDetected); Tricyclic Screen Not Detected (NotDetected)
[2018-10-30] MEDS ORDERED: Butorphanol Tartrate 1 MG/ML VIAL SLOW IVP PRN (22:28)
[2018-10-30] MEDS ORDERED: Butorphanol Tartrate 1 MG/ML VIAL ONE (22:33)
--- NOTE | 2018-10-30 22:33 | PDOC.EVN ---
Event Note - Event Note Event Note: No bleeding or leaking. Fhts stable, no decels. Ucs mild, q 3-6 mins. SVE= 50/post. USG shows adeq. JADE, no evidence of abruptio. RH positive, KB stain is negative. Will give Stadol and observe. Dispo is to proceed with repeat C/S for labor.
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
[2018-10-31 07:07] VITALS: BP 98/54
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
[2018-10-31 09:58] VITALS: TEMP 98.4
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
== END 2018-10-31 10:25 | disposition home health service (06) ==
LOC: ERS 16:34 → L&D/OP 17:44 → L&D 20:56
PROVIDERS: ADMIT Obstetrics & Gynecology; ATTEND Obstetrics & Gynecology
DX: Z04.1 Encounter for examination and observation following transport accident (principal); O99.333 Smoking (tobacco) complicating pregnancy, third trimester; Z3A.32 32 weeks gestation of pregnancy; O99.513 Diseases of the respiratory system complicating pregnancy, third trimester; J45.909 Unspecified asthma, uncomplicated; O99.343 Other mental disorders complicating pregnancy, third trimester; F31.9 Bipolar disorder, unspecified; Z91.041 Radiographic dye allergy status; Z90.49 Acquired absence of other specified parts of digestive tract; Z79.899 Other long term (current) drug therapy; Z98.890 Other specified postprocedural states
CPT/HCPCS: 76815; 80053; 80306; 81001; 85027; 85460; 86850; 86900; 86901; 96360; 96361; 99285; G0378; J0595; J3480; J7120

== ENCOUNTER 2018-11-10 15:50 | Inpatient (IN) | payer MEDICAID, OTHER ==
[2018-11-10 16:43] VITALS: TEMP 98.7
[2018-11-10 16:48] VITALS: BMI 30.4
[2018-11-10] MEDS ORDERED: Butorphanol Tartrate 1 MG/ML VIAL SLOW IVP PRN (18:32)
[2018-11-10] MEDS ORDERED: Promethazine HCl 25 MG/ML VIAL IM/IV PRN (18:33)
--- NOTE | 2018-11-10 18:37 | PDOC.EVN ---
Event Note - Event Note Event Note: Admission Note Patient seen at bedside. H&P dictated. DX: Threatened PTL at 34 weeks 3 days, CS X1
[2018-11-10] MEDS ORDERED: Lactated Ringer's 1,000 ML IV SCH (18:45)
--- NOTE | 2018-11-10 18:48 | PDOC.EVN ---
Event Note - Event Note Event Note: I just called NICU and updated them on patient's admission. they are aware of her status. I dictated in her H&P she was in APU2 but she is in APU bed 1.
[2018-11-10 19:05] LABS: Mean Corpuscular HGB CONC 36.2 g/dL (32.0-36.0); Mean Corpuscular Hemoglobin 35.1 pg (27.0-31.0); Mean Platelet Volume 6.8 fL (7.4-10.4); Platelet Count 302 thou/uL (130-400); RBC Distribution Width 11.2 % (11.5-14.5); Red Blood Cell (RBC) Count 3.13 mill/uL (4.20-5.40); White Blood Cell (WBC) Count 9.4 thou/uL (4.8-10.8)
[2018-11-10] MEDS: Dextrose 5%-Lactated Ringers 1,000 ML IV SCH (19:09)
--- NOTE | 2018-11-10 19:20 | PDOC.EVN ---
Event Note - Event Note Event Note: Sono verbal report: JADE 5.6 (may be secondary to tobacco use- she is a smoker Cephalic Posterior placenta Cervix is 1.5cm Dr Jasso notified of sono results
[2018-11-10 19:22] LABS: Band 6 % (5-11); Eosinophils 1 % (0-10); Lymphocytes 18 % (21-51); MDiff Complete? YES; Monocytes 3 % (0-10); Neutrophil 72 % (42-75); PLT Morphology Comment Appears Adequate; Polychromasia SLIGHT = 2-3 cells (100X) (0-2/hpf)
--- NOTE | 2018-11-10 19:33 | ULT ---
LIMITED OB ULTRASOUND: 11/10/18 PROVIDED CLINICAL HISTORY: Evaluate position and JADE. FINDINGS: Comparison was made with the study dated 10/30/18. Single live intrauterine gestation is documented in cephalic presentation with heart rate of 127 beat s per minute. Amniotic fluid index is calculated at 5.6. Cervical shortening is redemonstrate with as sociated cervical funneling. The cervix measures approximately 1 cm on the current study. IMPRESSION: Single live intrauterine gestation with cervical shortening and cervical funneling again noted. Oligo hydramnios. POS: [facility]
--- NOTE | 2018-11-10 19:46 | HP ---
TIME OF EVALUATION: 1815 hours. LOCATION: Labor and Delivery Antepartum Unit 2 (APU bed 2). This is a patient of Dr. Jasso. CHIEF COMPLAINT: The patient is here with contractions at 34 weeks and 3 days with a previous history x1. This patient has been in Labor and Delivery for repeated evaluations for threatened labor and is here today for similar evaluation. HISTORY OF PRESENT ILLNESS: In brief, this patient is a patient of Dr. Jasso , who sent the patient to Labor and Delivery after she evaluated the patient today in the office setting. She was sent to Labor and Delivery as the patient was thought to be 2 to 3 cm dilated there and was sent over to Labor and Delivery for labor observation as she has a history of a delivery at 35 weeks. Her last delivery was by , the first delivery was by vaginal . The patient is a 33-year-old 10, para 2, x1 with history x1 as previously described. She states she has been having on and off contractions, but has no vaginal bleeding or leakage of fluid. She states she lost her mucus plug this last Friday and has some mucus drainage, but nothing that is suspicious for rupture of membranes. She has no headache or right upper quadrant pain or other issues. She did have a cerclage this , but that was removed in September 2018. She did receive steroids previously in this . She was also want Tracy, but this was stopped by Dr. Jasso and the steroids had already been given and she was greater than 34 weeks. On 10/30/2018, she did have an ultrasound here at the hospital, which showed a posterior placenta, a short cervix of about 0.9 cm, and an estimated weight of 1930 g. At that time, the baby was in the cephalic presentation. PAST MEDICAL HISTORY: Includes asthma, but she rarely uses inhalers and is under good control. ALLERGIES: ALLERGIES ARE TO CT CONTRAST. PAST PSYCH HISTORY: Includes anxiety and depression, not on any medications. PAST OB HX: Had cerclage placed and removed this Pertinent labs include blood type of O positive. PHYSICAL EXAMINATION: VITAL SIGNS: Her temperature is 98.7, pulse is 85, respirations are 18, and blood pressure is 108/56. GENERAL: Clinically, I evaluated the patient at bedside and grossly she is in no acute distress. She seems to have some contraction discomfort, but is able to have a regular conversation and occasionally breathes through them. GENITOURINARY: Vaginal examination here in Labor and Delivery, she was 2 to 3 cm, 90% effaced, -1 station, posterior cervix. We relayed this information to Dr. Jasso, who said that was the same exam that she had in the office. MONITORS: On monitors, heart tones were in the 130s and they are reactive. On tocodynamometer, she does have irregular contractions about every 3 to 5 minutes. ASSESSMENT: This is a 33-year-old, G10, P2, with a previous x1, who would like a repeat unless the baby is eminently delivering, at which time she would like a vaginal , who is now at 34 weeks and 3 days, with threatened labor. She has been in Labor and Delivery on multiple admissions in the past and cervix is unchanged from earlier today. Last ultrasound was October which showed a weight of 1930 g. I have discussed our plan with her and Dr. Jasso. We will keep the patient in antepartum bed 2 for labor observation. We will give her hydration and sedation. She has already received steroids and she is beyond 32 weeks, so magnesium sulfate for neuroprotection is not indicated. We will not give GBS coverage as there is no evidence of cervical change at this time. If she changes her cervix, we will progress to a . PLAN: 1. Admission to Labor and Delivery. 2. I have ordered IV hydration and sedation. 3. I will order an ultrasound to check position. We are too early to check for another weight as she just had an ultrasound done on 10/30, which is just 11 days ago. 4. If cervical change occurs, we will perform a repeat . 5. History of asthma, but in clinical remission. Job ID: [id number] [facility]
[2018-11-10] MEDS ORDERED: Zolpidem Tartrate 5 MG TAB PO PRN (21:18)
[2018-11-11] MEDS: Dextrose 5%-Lactated Ringers 1,000 ML IV SCH (03:15)
--- NOTE | 2018-11-11 08:35 | PDOC.LDPN ---
Labor & Delivery Progress Note - Subjective Subjective: comfortable (Denies any more ctx. Good FM. reports some occasional wetness on underwear for the past week or so, no overt LOF known. ) - Objective Vital signs reviewed and normal: yes General: NAD, resting Uterine fundus: non tender Dilation: 2 Effacement: 75% Station: -2 FHT: category 1 (120s, mod joe, +accels, no decels ) [place] contractions every: no ctx seen this AM - Assessment (1) 34 weeks gestation of Code(s): Z3A.34 - 34 WEEKS GESTATION OF Current Visit: Yes Status : Acute (2) labor Code(s): O60.00 - LABOR WITHOUT DELIVERY, UNSPECIFIED TRIMESTER Current Visit: Yes Status: Acute -: Amnisure ordered. Per exam, no signs of ROM, however, due to complaints of wetness and low JADE will also order amnisure. BPP this AM to evaluate DVP after IVF overnight. Plan pending results.
[2018-11-11] MEDS ORDERED: Prenatal Vitamin 1 TAB PO SCH (09:00)
[2018-11-11 10:18] LABS: Amnisure Internal Control QC ACCEPTABLE (ACCEPTABLE); Amnisure Test No Membranes Rupture (No Rupture)
[2018-11-11 10:46] VITALS: BP 101/57
--- NOTE | 2018-11-11 10:54 | ULT ---
BIOPHYSICAL PROFILE: 11/11/2018 HISTORY: Thirty-four weeks' . Re-evaluate deepest vertical pocket of fluid and biophysical profile. COMPARISON: 11/10/2018 TECHNIQUE: Multiplanar flores-scale sonographic imaging of the gravid uterus is obtained. FINDINGS: A single intrauterine gestation is present with a vertex presentation. heart rate is 120 beats per minute. Amniotic fluid index is approximately 8.2 cm. The largest pocket of fluid measures approximately 3.4 cm. The placenta is located posteriorly with no evidence for previa or abruption. The cigarette filter inspector reports a 2/2 score for tone, breathing, movement, and amniotic flu id. IMPRESSION: Biophysical profile score 8/8. Amniotic fluid index measures 8.2 cm on this examination. POS: [facility]
--- NOTE | 2018-11-12 03:22 | DIS ---
DATE OF ADMISSION: 11/10/2018 DATE OF DISCHARGE: 11/11/2018 ADMISSION DIAGNOSES: 1. 34 weeks 3-day intrauterine . 2. labor. DISCHARGE DIAGNOSES: 1. 34 weeks 3-day intrauterine . 2. labor. ADMISSION PHYSICIAN: Vishnu Oropeza MD DISCHARGE PHYSICIAN: Mala Garcia DO BRIEF HOSPITAL COURSE: Ms. Estella Angelo is a 33-year-old G10, P2 at 34 weeks and 3 days, who presented for evaluation of labor. The patient had previously undergone betamethasone administration for lung maturity. Therefore, she was just admitted for IV hydration. Her cervical exam remained unchanged and she is no longer having contractions. The patient did have an ultrasound yesterday evening, which showed an JADE of 5.6, it was repeated this morning with an JADE of 8.1 with the deepest vertical pocket of 3.3 cm. Amnisure was negative. The status has remained reassuring and again her cervical exam remains unchanged. Per my exam this morning, she is 2 cm dilated, approximately 70% effaced and -2 station. The patient was counseled on continued bedrest until term. She will follow up in [address] Jasso. ACTIVITY RESTRICTIONS: I recommend continued pelvic rest and bedrest. DISCHARGE DISPOSITION: Home. DISCHARGE MEDICATIONS: None. Job ID: [id number] [facility]
== END 2018-11-11 11:04 | disposition home or self-care (01) | DRG 833 ==
LOC: L&D 15:50
PROVIDERS: ADMIT Student in an Organized Health Care Education/Training Program; ATTEND Student in an Organized Health Care Education/Training Program
DX: O60.03 Preterm labor without delivery, third trimester (principal); Z3A.34 34 weeks gestation of pregnancy; O34.211 Maternal care for low transverse scar from previous cesarean delivery; O99.52 Diseases of the respiratory system complicating childbirth; J45.909 Unspecified asthma, uncomplicated; Z91.041 Radiographic dye allergy status; Z79.899 Other long term (current) drug therapy; O99.333 Smoking (tobacco) complicating pregnancy, third trimester; F17.210 Nicotine dependence, cigarettes, uncomplicated
CPT/HCPCS: 36415; 76815; 76819; 84112; 85025; 86900; 86901; J0595; J2550

== ENCOUNTER 2018-11-11 19:08 | Inpatient (IN) | payer MEDICAID ==
[2018-11-11] MEDS ORDERED: Acetaminophen 500 MG TAB PO PRN (19:42)
[2018-11-11] MEDS ORDERED: Promethazine HCl 25 MG/ML VIAL IM PRN ×2 (19:42→22:23)
[2018-11-11] MEDS ORDERED: Ondansetron PF 4 MG/2 ML Vial IVP PRN ×2 (19:42→22:23)
[2018-11-11] MEDS ORDERED: CEFAZOLIN 2 GM/50 ML BAG IVPB SCH (19:45)
[2018-11-11] MEDS ORDERED: Bicitra 30 ML UDCUP PO SCH (19:45)
[2018-11-11] MEDS ORDERED: Lactated Ringer's 1,000 ML IV SCH (19:45)
[2018-11-11 19:54] LABS: Amnisure Internal Control QC ACCEPTABLE (ACCEPTABLE); Amnisure Test RUPTURE DETECTED (No Rupture)
--- NOTE | 2018-11-11 19:58 | PDOC.LDHP ---
Labor and Delivery H&P Chief complaint: loss of fluid HPI: 33 y/o at 34w4d, patient of Dr. Jasso, presents with large gush of fluid. Denies VB, regular ctx, or decreased FM. ROS neg for HEENT, CV, pulm, GI, , neuro, psych, skin, musculoskeletal, or constitutional symptoms other than mentioned above. OB History Details: 1 prior term LTCS 1 prior Past Medical History: Bipolar, anxiety, asthma Current medications: pre- vitamins Previous surgical history: low tranverse CS, other (cerclage placement and removal) Allergies/Adverse Reactions: Allergies Allergy/AdvReac Type Severity Reaction Status Date / Time grass pollen-perennial rye, Allergy Verified 10/02/18 19:23 standar [grass poll-perennial rye,std] Gadolinium-Containing AdvReac Intermediate Anaphylaxis Verified 10/02/18 19:23 Contrast Medi Social history: none - Physical Exam Vital signs reviewed and normal: yes General: NAD, resting Lungs: nonlabored breathing Abdomen: gravid Extremeties: no edema FHT: category 1 (135, mod variability, + accels, no decels) [place] contractions every: occasional - Vaginal Exam cm dilated: 3 Effacement: 100% Station: -2 - OB Labs Blood type: O RH: positive GBS: negative - Assessment L&D Assessment: premature rupture of membranes - Plan Plan: admit to L&D, to OR for section (with risk reducing salpingectomy ), informed consent obtained, anesthesia consult for pain management -: Dr. Jasso unavailable. [facility] to perform c/s.
[2018-11-11 20:21] LABS: Hemoglobin 11.6 g/dL (12.0-16.0); Mean Corpuscular Hemoglobin 35.5 pg (27.0-31.0); Mean Corpuscular Volume 98.5 fL (78.0-98.0); Mean Platelet Volume 6.7 fL (7.4-10.4); Platelet Count 301 thou/uL (130-400); RBC Distribution Width 11.3 % (11.5-14.5); Red Blood Cell (RBC) Count 3.26 mill/uL (4.20-5.40); White Blood Cell (WBC) Count 9.6 thou/uL (4.8-10.8)
[2018-11-11 20:58] LABS: HBSAg Index 0.23 S/CO (0-0.99); Hep B Surf Ag Non-Reactive S/CO (NonReactive)
[2018-11-11 21:11] LABS: Syphilis Antibody Nonreactive (Nonreactive); Syphilis Antibody Index 0.03 S/CO (<1.00 Non-Reactive)
[2018-11-11] MEDS ORDERED: Bupivacaine 0.75% W/DEXTROSE 8.25% 2 ML AMP ONE (21:39)
[2018-11-11] MEDS ORDERED: Oxytocin 10 UNITS/ML VIAL ONE ×2 (21:39→21:53)
[2018-11-11] MEDS ORDERED: Lidocaine 1% PF 5 ML VIAL ONE (21:39)
[2018-11-11] MEDS ORDERED: PHENYLEPHRINE-NS 100 MCG/ML 10 ML SYRINGE ONE (21:39)
[2018-11-11] MEDS ORDERED: Morphine PF 1 MG/ML SYR ONE (21:39)
[2018-11-11] MEDS ORDERED: Ondansetron PF 4 MG/2 ML Vial ONE (21:39)
[2018-11-11] MEDS ORDERED: Succinylcholine Chloride 20 MG/ML 10 ml SYRINGE FS ONE (22:04)
[2018-11-11] MEDS ORDERED: PROPOFOL 20 ML ONE (22:04)
[2018-11-11] MEDS ORDERED: Midazolam HCl 2 mg/2 ml Vial ONE ×2 (22:09→23:12)
[2018-11-11] MEDS ORDERED: Fentanyl 100 MCG/2 ML VIAL ONE ×2 (22:09→23:51)
[2018-11-11] MEDS ORDERED: Methylergonovine 0.2 MG/ML VIAL ONE (22:18)
[2018-11-11] MEDS ORDERED: Ondansetron HCl/PF 4 MG/2 ML Vial IVP PRN (22:23)
[2018-11-11] MEDS ORDERED: Promethazine HCl 25 MG SUPP PR PRN (22:23)
[2018-11-11] MEDS ORDERED: Meperidine HCl/PF 25 MG/ML VIAL SLOW IVP PRN (22:23)
[2018-11-11] MEDS ORDERED: Eucerin (Mineral Oil/Petrolatum,White) 30 gm Jar TOP PRN (22:23)
[2018-11-11] MEDS ORDERED: Naloxone HCl 0.4 mg/ml Vial IV PRN (22:23)
[2018-11-11] MEDS ORDERED: HYDROmorphone 2 MG/ML VIAL SLOW IVP PRN (22:23)
[2018-11-11] MEDS ORDERED: diphenhydrAMINE 50 MG/ML VIAL IVP PRN (22:23)
[2018-11-11] MEDS ORDERED: Naloxone HCl 0.4 mg/ml Vial IVP PRN ×2 (22:23)
[2018-11-11] MEDS ORDERED: L&D-Morphine 4 MG/ML VIAL SLOW IVP PRN (22:23)
[2018-11-11] MEDS ORDERED: Ketorolac Tromethamine 30 MG/ML VIAL IVP SCH (22:30)
[2018-11-11] MEDS ORDERED: Communication Order-Pharmacy FS SCH (22:30)
[2018-11-11 22:32] LABS: Amphetamine Not Detected (NotDetected); Barbiturates Screen Not Detected (NotDetected); Benzodiazepine Screen Not Detected (NotDetected); Cocaine Metabolite Screen Not Detected (NotDetected); Medtox Control Line Valid? VALID (VALID); Medtox Reader # READER 1; Methadone Not Detected (NotDetected); Methamphetamine Not Detected (NotDetected); Opiate Screen Not Detected (NotDetected); Oxycodone Screen Not Detected (NotDetected); Phencyclidine (PCP) Not Detected (NotDetected); THC/Cannabinoid Screen Not Detected (NotDetected); Tricyclic Screen Not Detected (NotDetected)
[2018-11-11 22:45] VITALS: BMI 32.5
--- NOTE | 2018-11-11 23:52 | PDOC.OPDEL ---
OB Operative/Delivery Note Delivery Dr/Surgeon: Geraldine Franks MD Assist: Mattie Jasso, Sussy Coronado Pre-Delivery Diagnosis: ruptured membrane Procedure/Post Delivery Dx: repeat low transverse CS Weeks gestation: 34 Anesthesia: other (spinal, converted to general) - Findings A Sex: male Weight: 5 lb 5.187 oz - 1 min: 5 - 5 min: 7 - Additional Findings/Plan Placenta delivered: manual removal findings: low transverse hysterotomy without extension, normal ovaries , other (omental adhesions to anterior uterus, left tube with adhesions to left ovary) Estimated blood loss: 1120 Compilations/Other Findings: Bleeding encountered when taking down left tube adhesions, resolved with ligation and salpingectomy. Post delivery plan: routine recovery
[2018-11-12] MEDS ORDERED: Meperidine HCl/PF 25 MG/ML VIAL ONE
[2018-11-12] MEDS ORDERED: Morphine 4 MG/ML VIAL ONE (00:43)
[2018-11-12] MEDS ORDERED: Ketorolac Tromethamine 30 MG/ML VIAL ONE (00:57)
[2018-11-12] MEDS ORDERED: Midazolam HCl 2 mg/2 ml Vial ONE (00:57)
[2018-11-12] MEDS ORDERED: Fentanyl 100 MCG/2 ML VIAL ONE (00:58)
[2018-11-12] MEDS ORDERED: Fentanyl 100 MCG/2 ML VIAL SLOW IVP PRN (01:00)
[2018-11-12] MEDS ORDERED: Lanolin Ointment 7 GM TUBE TOP PRN (01:13)
[2018-11-12] MEDS ORDERED: Ondansetron PF 4 MG/2 ML Vial IVP PRN (01:13)
[2018-11-12] MEDS ORDERED: Bisacodyl 10 MG SUPP PR PRN (01:13)
[2018-11-12] MEDS ORDERED: NS / Oxytocin 40 units/1000ml 1,000 ML IV SCH (01:13)
[2018-11-12] MEDS ORDERED: diphenhydrAMINE 25 MG CAP PO PRN (01:13)
[2018-11-12] MEDS ORDERED: Midazolam HCl 2 mg/2 ml Vial SLOW IVP SCH (01:15)
--- NOTE | 2018-11-12 03:07 | OP ---
DATE OF PROCEDURE: 11/11/2018 PREOPERATIVE DIAGNOSES: 1. A 34-week intrauterine . 2. premature rupture of membranes. 3. Prior section x1, desiring repeat. 4. Significant family history of breast and ovarian cancer. POSTOPERATIVE DIAGNOSES: 1. A 34-week intrauterine . 2. premature rupture of membranes. 3. Prior section x1, desiring repeat. 4. Significant family history of breast and ovarian cancer. PROCEDURE PERFORMED: Repeat low-transverse section with risk-reducing bilateral salpingectomy. ASSISTANTS: 1. Mattie Jasso MD. 2. Sussy Coronado DO. ANESTHESIA: Spinal converted to general. COMPLICATIONS: Bleeding encountered during left salpingectomy due to adhesions to the ovary. QBL: 1120ml DESCRIPTION OF PROCEDURE: The patient was taken to the operating room, where spinal anesthesia was obtained, however, the patient had significant anxiety and was feeling pain and the decision was made to convert to general anesthesia. She was prepared and draped in normal sterile fashion in the dorsal supine position with left-mann tilt. A Pfannenstiel skin incision was made with scalpel and carried down to the underlying layer of fascia. The fascia was incised in the midline and extended laterally with Simmons scissors. The fascia was then dissected off the rectus muscles sharply. The rectus muscles were in the midline. The peritoneum was entered bluntly. Peritoneal opening was extended superiorly and inferiorly with good visualization of the bladder. At that time, significant adhesions of the omentum were noted to the anterior uterus. These were ligated and tied with free-ties for good hemostasis. An Sixto O retractor was inserted in the abdomen. The lower uterine segment was incised in a transverse fashion with the scalpel. The incision was extended with cephalocaudal traction. The infant's head was delivered atraumatically. Nose and mouth were suctioned with bulb suction. The cord was clamped and cut. The infant was handed off to awaiting NICU team. The placenta was then delivered, however, it was noted to be slightly adherent and the uterus started to invert. The placenta was then removed manually and the uterus replaced back to its normal state without difficulty. The uterus was then noted to be atonic and the patient received Methergine and intrauterine Pitocin and the tone improved. The uterus was cleared of all clots and debris. The hysterotomy was repaired in two layers with Monocryl for good hemostasis. Attention was then turned to the right fallopian tube. The tube was grasped with Rigo clamps, doubly clamped inferiorly, and incised from the mesosalpinx. The mesosalpinx was tied with free-ties for good hemostasis. The tube was removed and free tied with good hemostasis. Attention was turned to the left fallopian tube, where adhesions were noted of the fimbriated end to the ovary. Attempts were made to free the left fallopian tube from the adhesions, however, significant bleeding started at the distal portion into the mesosalpinx and clamped At this point, Dr. Mattie Jasso was called in to assist for better visualization. A window was made inferior the area of bleeding. This was clamped with Akila clamps, incised, with the mesosalpinx suture ligated and free-tied for good hemostasis. The tube was then incised and removed, and again suture ligated with a second free-tie for good hemostasis. The uterus was returned to the abdomen and again hemostasis was noted. The abdomen was irrigated copiously. The peritoneum was reapproximated with Vicryl with a [id number]. The fascia was reapproximated in a running fashion with 0 PDS. The subcutaneous tissue was reapproximated with 3-0 plain gut and the skin was sutured with 4-0 Monocryl. The patient tolerated the procedure well. Sponge, lap, and needle counts were correct x2. The patient was taken to the recovery room in stable condition. Job ID: [id number] [facility]
[2018-11-12 06:35] LABS: Hemoglobin 9.3 g/dL (12.0-16.0); Mean Corpuscular HGB CONC 35.8 g/dL (32.0-36.0); Mean Corpuscular Hemoglobin 35.4 pg (27.0-31.0); Mean Corpuscular Volume 98.7 fL (78.0-98.0); Mean Platelet Volume 7.2 fL (7.4-10.4); Platelet Count 270 thou/uL (130-400); RBC Distribution Width 11.3 % (11.5-14.5); Red Blood Cell (RBC) Count 2.64 mill/uL (4.20-5.40); White Blood Cell (WBC) Count 14.2 thou/uL (4.8-10.8)
--- NOTE | 2018-11-12 08:05 | PDOC.PP ---
Post Progress Note Post Day #: 1 PO intake tolerated: no Flatus: no Ambulation: no Vital Signs (12 hours) Temp Pulse Resp BP Pulse Ox 11/12/18 02:45 97.2 F L 63 18 113/55 L 100 11/12/18 01:45 97.7 F 62 18 111/60 97 Weight Weight 190 lb - Physical Examination General: NAD Respiratory: non-labored breathing Abdominal: no distention, appropriately TTP Fundus firm & at: umb Extremities: negative homans (B) Skin: CS incision dry & intact Psychiatric: normal affect Result Diagrams: 11/12/18 06:14 Additional Labs: Post Labs Blood Type O POSITIVE 11/11/18 20:08 Hep Bs Antigen Non-Reactive S/CO (NonReactive) 11/11/18 20:08 - Assessment/Plan POD1 s/p RCS and RRS VSSAF Doing well routine postop advances hgb 9.3 postop following qbl 1120cc, no sx anemia, acute blood loss anemia, will recheck tomorrow. Cont PNV and Fe supp. Bottlefeeding Rh pos RImm Previous UDS pos for THC, neg here, will get case mgmt consult. Bipolar- mood stable, will need fu with MR Cont postop care.
[2018-11-12] MEDS: Ferrous Sulfate 325 MG TAB PO SCH ×2 (08:30→21:01)
[2018-11-12] MEDS: Prenatal Vitamin 1 TAB PO SCH (08:30)
[2018-11-12] MEDS: Docusate Calcium (SURFAK) 240 MG CAP PO SCH ×2 (08:30→21:00)
[2018-11-12] MEDS ORDERED: Sodium Chloride 0.9% 10 ML ONE ×2 (08:31→19:19)
[2018-11-12] MEDS: Ketorolac Tromethamine 30 MG/ML VIAL IVP PRN ×2 (08:32→13:44)
[2018-11-12] MEDS ORDERED: Adacel (T-DAP) 0.5 ML SYRINGE IM ONE (09:00)
[2018-11-12] MEDS: HYDROcodone/Acetaminophen 5/325 mg Tablet PO PRN ×3 (13:44→23:48)
[2018-11-12] MEDS ORDERED: Morphine 2 MG/ML SYRINGE SLOW IVP SCH (19:15)
[2018-11-12] MEDS: Ibuprofen 800 MG TAB PO SCH (21:01)
[2018-11-12] MEDS: Simethicone Chewable 80 MG TAB PO PRN (21:02)
[2018-11-13] MEDS ORDERED: Ibuprofen 800 MG TAB PO SCH (06:00)
[2018-11-13] MEDS: Ibuprofen 800 MG TAB PO SCH ×3 (06:04→22:30)
--- NOTE | 2018-11-13 07:55 | PDOC.PP ---
Post Progress Note Post Day #: 2 PO intake tolerated: yes Flatus: yes Ambulation: yes Vital Signs (12 hours) Temp Pulse Resp BP 11/13/18 02:00 18 11/12/18 23:50 97.9 F 80 20 105/53 L Weight Weight 190 lb - Physical Examination General: NAD Cardiovascular: RRR Respiratory: non-labored breathing Abdominal: no distention, appropriately TTP Fundus firm & at: umb-2 Skin: CS incision dry & intact Neurological: no gross focal deficits Psychiatric: normal affect Result Diagrams: 11/12/18 06:14 Additional Labs: Post Labs Blood Type O POSITIVE 11/11/18 20:08 Hep Bs Antigen Non-Reactive S/CO (NonReactive) 11/11/18 20:08 - Assessment/Plan POD2 s/p RCS and RRS at 34w due to PPROM VSSAF Hgb 11.6--> ebl 1120--> hgb 9.3, no s/sx anemia, cont PNV and Fe Met postop milestones, cont pain control measures with scheduled ibuprofen and prn norco, abd binder ordered Breastpumping, in NICU Rh pos RImm Cont postop care.
[2018-11-13] MEDS: HYDROcodone/Acetaminophen 5/325 mg Tablet PO PRN ×2 (08:21→20:10)
[2018-11-13] MEDS: Simethicone Chewable 80 MG TAB PO PRN (08:21)
[2018-11-13] MEDS: Prenatal Vitamin 1 TAB PO SCH (08:21)
[2018-11-13] MEDS: Ferrous Sulfate 325 MG TAB PO SCH ×2 (08:21→22:30)
[2018-11-13] MEDS: Docusate Calcium (SURFAK) 240 MG CAP PO SCH ×2 (08:21→20:08)
[2018-11-13 12:39] LABS: Amphetamine Not Detected (NotDetected); Barbiturates Screen Not Detected (NotDetected); Benzodiazepine Screen Not Detected (NotDetected); Cocaine Metabolite Screen Not Detected (NotDetected); Medtox Control Line Valid? VALID (VALID); Medtox Reader # READER 4; Methadone Not Detected (NotDetected); Methamphetamine Not Detected (NotDetected); Opiate Screen Detected (NotDetected); Oxycodone Screen Not Detected (NotDetected); Phencyclidine (PCP) Not Detected (NotDetected); THC/Cannabinoid Screen Detected (NotDetected); Tricyclic Screen Not Detected (NotDetected)
--- NOTE | 2018-11-14 05:37 | PDOC.PP ---
Post Progress Note Post Day #: 3 Subjective: Doing well, trying to pump milk; baby doing well PO intake tolerated: yes Flatus: yes Ambulation: yes Vital Signs (12 hours) Temp Pulse Resp BP Pulse Ox 11/13/18 19:52 98.1 F 101 H 20 109/64 100 Weight Weight 190 lb Vitals reviewed from last 24 hours - Physical Examination General: NAD Cardiovascular: no m/r/g Respiratory: clear to auscultation bilaterally Abdominal: + bowel sounds, lochia, no distention, appropriately TTP Extremities: negative homans (B) Skin: CS incision dry & intact (sutured and DB) Neurological: no gross focal deficits Psychiatric: A&Ox3, normal affect Result Diagrams: 11/12/18 06:14 Additional Labs: Post Labs Blood Type O POSITIVE 11/11/18 20:08 Hep Bs Antigen Non-Reactive S/CO (NonReactive) 11/11/18 20:08 - Assessment/Plan Postip day 3 from repeat CS, incision C/D/I. No evidence metritis or wound infection. CPS has file opened on this patient, info on chart. baby was born at 34-35 weeks...doing well but will stay in NICU. Patient is clear for DC to home. Wound check in 2 weeks Final DX: Repeat CS and RRS performed Delivery at 34 weeks History Marijuana use
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
[2018-11-14] MEDS: Ibuprofen 800 MG TAB PO SCH (06:33)
[2018-11-14] MEDS: Docusate Calcium (SURFAK) 240 MG CAP PO SCH (09:05)
[2018-11-14] MEDS: Prenatal Vitamin 1 TAB PO SCH (09:05)
[2018-11-14] MEDS: Ferrous Sulfate 325 MG TAB PO SCH (09:05)
[2018-11-14 09:53] VITALS: BP 117/55; TEMP 98.3
== END 2018-11-14 10:39 | disposition home or self-care (01) | DRG 783 ==
LOC: L&D/OP 19:08 → L&D 20:07 → 3SE 11-12 02:04
PROVIDERS: ADMIT Obstetrics & Gynecology; ATTEND Obstetrics & Gynecology
PROC: 10D00Z1 Extraction of Products of Conception, Low, Open Approach (ICD-10-PCS; principal; 2018-11-11)
PROC: 0UT70ZZ Resection of Bilateral Fallopian Tubes, Open Approach (ICD-10-PCS; 2018-11-11)
PROC: 0UN10ZZ Release Left Ovary, Open Approach (ICD-10-PCS; 2018-11-11)
DX: O42.013 Preterm premature rupture of membranes, onset of labor within 24 hours of rupture, third trimester (principal); O60.14X0 Preterm labor third trimester with preterm delivery third trimester, not applicable or unspecified; O99.324 Drug use complicating childbirth; D62 Acute posthemorrhagic anemia; O99.89 Other specified diseases and conditions complicating pregnancy, childbirth and the puerperium; O34.211 Maternal care for low transverse scar from previous cesarean delivery; O99.344 Other mental disorders complicating childbirth; O99.03 Anemia complicating the puerperium; F31.9 Bipolar disorder, unspecified; O99.62 Diseases of the digestive system complicating childbirth; R41.3 Other amnesia; Z3A.34 34 weeks gestation of pregnancy; Z37.0 Single live birth; O75.89 Other specified complications of labor and delivery; K21.9 Gastro-esophageal reflux disease without esophagitis; J45.909 Unspecified asthma, uncomplicated; N73.6 Female pelvic peritoneal adhesions (postinfective); F12.90 Cannabis use, unspecified, uncomplicated; O99.334 Smoking (tobacco) complicating childbirth; F17.210 Nicotine dependence, cigarettes, uncomplicated; O99.52 Diseases of the respiratory system complicating childbirth; Z90.89 Acquired absence of other organs; Z91.041 Radiographic dye allergy status; Z98.890 Other specified postprocedural states
CPT/HCPCS: 36415; 51702; 80306; 84112; 85027; 86780; 86850; 86900; 86901; 87340; 88302; 88307; 99285; J1170; J1885; J2001; J2175; J2210; J2250; J2270; J2274; J2405; J2590; J2704; J3010; J3490

== ENCOUNTER 2019-08-04 19:04 | Emergency (ER) | payer MEDICAID, SELFPAY | END 2019-08-04 20:00 | disposition home or self-care (01) | LOC: SCSER 19:04 | DX: K01.1 Impacted teeth (principal); J06.9 Acute upper respiratory infection, unspecified; D50.9 Iron deficiency anemia, unspecified; J45.909 Unspecified asthma, uncomplicated; F31.9 Bipolar disorder, unspecified; F41.9 Anxiety disorder, unspecified; F17.210 Nicotine dependence, cigarettes, uncomplicated; Z79.899 Other long term (current) drug therapy | CPT/HCPCS: 99282 ==

== ENCOUNTER 2019-09-06 18:07 | Emergency (ER) | payer MEDICAID, OTHER ==
[2019-09-06] MEDS ORDERED: Acetaminophen 500 MG TAB ONE (18:44)
--- NOTE | 2019-09-06 19:32 | CT ---
CT HEAD WITHOUT CONTRAST: Date: 09-06-19 History: Head trauma. Technique: Axial CT imaging at 4.8 mm intervals from vertex through the skull base without contrast. FINDINGS: This study is compared to a prior exam performed 03-15-17. The visualized paranasal sinuses and mastoid air cells are well aerated. No displaced calvarial fract ure is noted. No intracranial hemorrhage, midline shift, mass effect, or ventricular enlargement. IMPRESSION: No intracranial hemorrhage or displaced calvarial fracture. POS: [facility]
--- NOTE | 2019-09-06 19:37 | CT ---
CERVICAL SPINE CT WITHOUT CONTRAST: Date: 09-06-19 Comparison: None. History: Trauma, pain. Technique: Axial CT imaging obtained at 2 mm intervals from the skull base through the lung apices wi coronal and sagittal reformatted imaging. FINDINGS: The imaged paranasal sinuses and mastoid air cells are well aerated. The craniocervical junction, the atlantoaxial interspace, the occipital condyles, the dens, the C1-2 articulation, and the cervicothoracic junction appears intact. No prevertebral soft tissue swelling. Cervical vertebral body height and alignment appears normal. The visualized lung apices are unremarkable. No displaced fracture or evidence of dislocation is seen . IMPRESSION: No acute osseous abnormality. POS: [facility]
== END 2019-09-06 19:39 | disposition home or self-care (01) ==
LOC: SCSER 18:07
DX: S13.4XXA Sprain of ligaments of cervical spine, initial encounter (principal); J45.909 Unspecified asthma, uncomplicated; F41.9 Anxiety disorder, unspecified; F31.9 Bipolar disorder, unspecified; F17.210 Nicotine dependence, cigarettes, uncomplicated; V89.2XXA Person injured in unspecified motor-vehicle accident, traffic, initial encounter
CPT/HCPCS: 70450; 72125

== ENCOUNTER 2019-09-30 15:16 | Emergency (ER) | payer OTHER ==
[2019-09-30] MEDS ORDERED: Ketorolac Tromethamine 30 MG/ML VIAL ONE (16:52)
== END 2019-09-30 17:16 | disposition home or self-care (01) ==
LOC: ERS 15:16
DX: M25.552 Pain in left hip (principal); R51 Headache; D50.9 Iron deficiency anemia, unspecified; J45.909 Unspecified asthma, uncomplicated; F41.9 Anxiety disorder, unspecified; F31.9 Bipolar disorder, unspecified; F17.210 Nicotine dependence, cigarettes, uncomplicated
CPT/HCPCS: 96372; 99284; J1885

== ENCOUNTER 2024-04-17 23:33 | Emergency (ER) | payer OTHER, SELFPAY ==
[2024-04-18] MEDS ORDERED: Amoxicillin/Potassium Clav 250 MG TAB ONE (01:14)
[2024-04-18] MEDS ORDERED: Ketorolac Tromethamine 30 MG (1 mL) VIAL ONE (01:14)
[2024-04-18 01:23] LABS: HIV (1/2) Antibody/Antigen NONREACTIVE (NonReactive); HIV 1/2 INDEX 0.05 S/CO (<1.00); Hep C Index 0.09 S/CO (0-0.79)
[2024-04-18 01:53] LABS: HBSAB Concentration 2131.41 mIU/mL; Hep B Surf AB REACTIVE (NonReactive)
[2024-04-18 01:54] LABS: Hep C IgG Ab NonReactive S/CO (NonReactive)
== END 2024-04-18 01:19 | disposition home or self-care (01) ==
LOC: ERS 23:33
DX: S51.852A Open bite of left forearm, initial encounter (principal); F17.210 Nicotine dependence, cigarettes, uncomplicated; Y04.1XXA Assault by human bite, initial encounter
CPT/HCPCS: 36415; 86706; 86803; 96372; 99283; J1885